=== PATIENT | male | born 1990 | race African-American/Black ===

== ENCOUNTER 2025-02-25 11:02 | Emergency (ER) | payer OTHER ==
[~2025-02-25] VITALS: Ht 175.3 cm; Wt 70.2 kg
[2025-02-25 11:11] VITALS: BP 136/77; TEMP 97.9; O2SAT 100
[2025-02-25] MEDS ORDERED: GABA-1172 PO (13:25)
[2025-02-25] MEDS: GABAPENTIN 300 MG CAP PO ONE (13:26)
== END 2025-02-25 13:39 | disposition home or self-care (01) ==
LOC: M ED 11:02
DX: G57.93 Unspecified mononeuropathy of bilateral lower limbs (principal); Z79.899 Other long term (current) drug therapy